=== PATIENT | male | born 1980 | race Caucasian/White ===

== ENCOUNTER 2017-04-14 10:06 | Emergency (ER) | payer OTHER ==
[~2017-04-14] VITALS: Ht 182.9 cm; Wt 93.3 kg
[2017-04-14 10:09] VITALS: TEMP 36.4; Ht 182.9 cm; Wt 93.3 kg
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
[2017-04-14] MEDS ORDERED: OXYCODONE IR HOME PACK PO ONE (11:00)
--- NOTE | 2017-04-14 11:16 | DIAGNOSTIC IMAGING REPORT ---
RIGHT TIBIA/FIBULA 2 VIEWS ROUTINE CLINICAL HISTORY: R calf pain and swelling Right trauma. Pain. COMPARISON: None. DISCUSSION: The bones and joint spaces appear intact. There is no evidence of fracture, dislocation or bony disease. There is no evidence for soft tissue swelling. IMPRESSION: Negative study. The above report was generated using voice recognition software. It may contain grammatical, syntax or spelling errors. Electronically signed by: Dheeraj Vega M.D. 04/14/2017 11:14 AM Dictated Date/Time: 04/14/2017 11:14 AM
--- NOTE | 2017-04-14 11:17 | DIAGNOSTIC IMAGING REPORT ---
RIGHT ANKLE MIN 3 VIEWS ROUTINE CLINICAL HISTORY: R ankle pain, trauma Right COMPARISON: None. DISCUSSION: The bones and joint spaces appear intact. There is no evidence of fracture, dislocation or bony disease. There is no evidence for soft tissue swelling. IMPRESSION: Negative study. The above report was generated using voice recognition software. It may contain grammatical, syntax or spelling errors. Electronically signed by: Dheeraj Vega M.D. 04/14/2017 11:15 AM Dictated Date/Time: 04/14/2017 11:15 AM
[2017-04-14 11:35] VITALS: BP 114/70; PULSE 70; O2SAT 99
== END 2017-04-14 11:41 | disposition home or self-care (01) ==
LOC: C.EDB 10:09 → C.EDA 11:41
DX: S89.81XA Other specified injuries of right lower leg, initial encounter (principal); S40.811A Abrasion of right upper arm, initial encounter; V09.00XA Pedestrian injured in nontraffic accident involving unspecified motor vehicles, initial encounter; Y92.89 Other specified places as the place of occurrence of the external cause